=== PATIENT | female | born 1980 | race Caucasian/White ===

== ENCOUNTER → 2019-10-04 | Outpatient (CLI) | payer BC ==
[2019-10-04 15:20] VITALS: BP 141/93; PULSE 86; RESP 16; TEMP 98.4
--- NOTE | 2019-10-04 15:49 | P.GSHP ---
History of Present Illness H&P Date: 10/04/19 Chief Complaint: Mammographic abnormality left breast Mendoza is a 39-year-old white female seen in consultation for Lulu Reilly regarding a mammographic abnormality in her left breast. She had bilateral breast mammograms performed in September 2018. This revealed an asymmetric lesion in the superior aspect of the left breast. Additional radiograph of the left breast performed in October 2018 confirmed some asymmetry in the superior portion of the left breast. The area was first noted in September 2018. The patient then had a 6 month follow-up of her left breast on . This revealed persistent asymmetric dense breast tissue superiorly in the left breast likely related to postsurgical change. This has been stable for at least 6 months. [place] previously seen medially was less defined suggesting a benign etiology. No progressive abnormality was noted. This was a BIRADS 3 probably benign lesion. The patient underwent bilateral reduction mammoplasty in 2013. The patient is not complaining of any pain in her breast. She is not complaining of any nipple discharge or skin changes of concern. caffiene: 12 ounces of coffee every morning Smoke: The patient does not smoke and is not exposed to secondhand smoke Theophylline: Several times a week Family history: maternal grandmother: ovarian cancer Hormonal History: menarche: 10 breast fed: no, first born at 20 periods none uterine ablation, 8 years ago at 31 BCP: 9 years hormones: none Surgical history: 1. bilateral breast reduction, ( back pain) from 42DD to a 38C 2. uterine ablation Medical History: asthma Social History: smoke: none slcohol: occasional drugs: none - Constitutional Constitutional: Denies chills, Denies fever - EENT Eyes: denies blurred vision, denies pain Ears: deny: decreased hearing, tinnitus Ears, nose, mouth and throat: Denies headache, Denies sore throat - Breasts Breasts: bilateral: as per HPI - Cardiovascular Cardiovascular: Denies chest pain, Denies shortness of breath - Respiratory Comment: asthma - Gastrointestinal Gastrointestinal: Denies abdominal pain, Denies diarrhea, Denies nausea, Denies vomiting - Genitourinary (Female) Genitourinary: Denies dysuria, Denies hematuria - Menstruation Menstruation: Reports amenorrhea - Musculoskeletal Musculoskeletal: Denies myalgias - Integumentary Integumentary: Denies pruritus, Denies rash - Neurological Neurological: Denies numbness, Denies weakness - Psychiatric Psychiatric: Denies anxiety, Denies depression - Endocrine Endocrine: Denies fatigue, Denies weight change - Hematologic/Lymphatic Comment: none - Allergic/Immunologic Allergic/Immunologic: Reports seasonal allergies Past Medical History Past Medical History: Asthma History of Any Multi-Drug Resistant Organisms: None Reported Past Surgical History: Ablation, Breast Surgery Additional Past Surgical History / Comment(s): breast reduction approx 2013; Past Anesthesia/Blood Transfusion Reactions: No Reported Reaction Past Psychological History: No Psychological Hx Reported Smoking Status: Former smoker Past Alcohol Use History: Occasional Additional Past Alcohol Use History / Comment(s): smoked off and on for about 18 years, smoked .25 PPD, stopped smoking in 2015 Past Drug Use History: None Reported - Past Family History Father Family Medical History: Hypertension Mother Family Medical History: No Reported History Brother(s) Family Medical History: Hypertension Medications and Allergies Home Medications Medication Instructions Recorded Confirmed Type Fluticasone/Salmeterol [Advair 1 each IH HS 10/04/19 10/04/19 History 250-50 Diskus] Allergies Allergy/AdvReac Type Severity Reaction Status Date / Time No Known Allergies Allergy Unverified 10/04/19 15:01 Surgical - Exam Vital Signs Temp Pulse Resp BP Pulse Ox 98.4 F 86 16 141/93 98 10/04/19 15:02 10/04/19 15:02 10/04/19 15:02 10/04/19 15:02 10/04/19 15:02 BMI 31.3 - General well developed, well nourished, no distress, obese - Eyes normal ocular movement - ENT normal pinna, no hearing loss, no congestion - Neck no masses, trachea midline, no lymphadectomy - Respiratory normal expansion, normal respiratory effort, clear to auscultation - Cardiovascular Rhythm: regular Heart Sounds: normal: S1, S2 - Abdomen Abdomen: soft, non tender, bowel sounds, no guarding, no rigid, no rebound - Integumentary normal turgor - Neurologic no disoriented, no combative - Musculoskeletal normal gait, normal posture - Psychiatric oriented to time, oriented to person, oriented to place, speech is normal, memory intact breast exam: BRA 38 C ptosis grade 1/2 inspection: Well-healed scars from bilateral reduction mammoplasty No nipple inversion Palpation right breast: Multi-positional exam right breast no dominant masses or nodules of concern, were cystic changes, scar tissue related to reduction mammoplasty Right axilla: No adenopathy of concern Left breast: Multi-positional exam no dominant masses or nodules of concern, fibrocystic changes, scar tissue related to reduction mammoplasty Left axilla: No adenopathy of concern Results Mammogram from [facility] reviewed with radiologist Assessment and Plan Assessment: Impression: 1. Mammographic abnormality left breast 2. Fibrocystic breast changes 3. Scar tissue and breast related to reduction mammoplasty 4. Bilateral reduction mammoplasty 5. Family history of ovarian cancer in maternal grandmother 6. BMI 31.1 9 7. Asthma Discussed the radiographic findings on the mammogram most likely related to scar tissue. We've also discussed fibrocystic breast disease. The patient does drink coffee each morning and we'll discuss that this may exacerbate fibrocystic breast changes. She understands and will consider decreasing caffeine intake. Additionally she is going to have an ultrasound of the left breast to better evaluate the area. She wishes to have this performed and some dusky she will call us after this is done. Plan: 1. We've discussed fibrocystic breast changes and that the caffeine may exacerbate these the patient will consider if she wants decrease her caffeine intake 2. After review of radiographs with the radiologist recommended that a left breast ultrasound be performed this is being ordered 3. Follow-up after ultrasound of the left breast this will be done verbally if the ultrasound does not show any lesions of concern, if there is anything of concern she will follow-up. 4. Bilateral mammogram in 3 months with physician exam CC: Dr. iPna Noguera encounter 40 minutes, > 50% of time planning and counselling
== END | disposition home or self-care (01) ==
LOC: WWCWWP 14:38
PROVIDERS: ATTEND Surgery
DX: Z53.9 Procedure and treatment not carried out, unspecified reason (principal)